=== PATIENT | female | born 1990 | race African-American/Black ===

== ENCOUNTER 2017-12-25 23:34 | Emergency (ER) | payer SELFPAY ==
[2017-12-26] MEDS: IBUPROFEN 800 MG TABLET. PO
[2017-12-26] MEDS: predniSONE 20 MG TABLET PO (00:01)
== END 2017-12-26 00:15 | disposition home or self-care (01) ==
LOC: ER 23:34
DX: J02.9 Acute pharyngitis, unspecified (principal); H92.09 Otalgia, unspecified ear
CPT/HCPCS: 99283; J7512